=== PATIENT | female | born 1945 | race Caucasian/White ===

== ENCOUNTER → 2022-03-08 | Outpatient (CLI) | payer OTHER, MEDICAID | LOC: M RAD 07:45 | PROVIDERS: ATTEND Orthopaedic Surgery | DX: M41.85 Other forms of scoliosis, thoracolumbar region (principal); S22 Fracture of rib(s), sternum and thoracic spine; S22.079 Unspecified fracture of T9-T10 vertebra; S22.08 Fracture of T11-T12 vertebra | CPT/HCPCS: 78315; A9503 ==

== ENCOUNTER 2023-08-07 18:10 | Inpatient (IN) | payer OTHER, MEDICAID ==
[~2023-08-07] VITALS: Ht 167.6 cm; Wt 38.0 kg
[2023-08-07 18:10] VITALS: BP 147/80; TEMP 97.9; O2SAT 92
[2023-08-07 20:18] LABS: BASO # 0.1 10^3/uL (0.0-0.2); BASO % 0.8 % (0.0-1.0); EOS # 0.1 10^3/uL (0.0-0.5); EOS % 1.2 % (0.0-3.0); HEMATOCRIT 37.4 % (36.0-47.0); HEMOGLOBIN 12.9 g/dl (12.0-15.5); LYMPH # 2.4 10^3/uL (1.5-5.0); LYMPH % 20.4 % (24.0-44.0); MEAN CORPUSCULAR HEMOGLOBIN 33.7 pg (27.0-33.0); MEAN CORPUSCULAR HGB CONC 34.5 g/dl (32.0-36.5); MEAN CORPUSCULAR VOLUME 97.7 fl (80.0-96.0); MONO % 8.4 % (2.0-8.0); NEUTROPHILS # 7.9 10^3/uL (1.5-8.5); NEUTROPHILS % 68.8 % (36.0-66.0); PLATELET COUNT, AUTOMATED 212 10^3/uL (150-450); RED BLOOD COUNT 3.83 10^6/uL (4.00-5.40); WHITE BLOOD COUNT 11.5 10^3/uL (4.0-10.0)
[2023-08-07 20:35] LABS: ALBUMIN 3.9 G/DL (3.2-5.2); ALKALINE PHOSPHATASE 90 U/L (46-116); ALT/SGPT 16 U/L (7.0-40); AST/SGOT 17 U/L (<34); BILIRUBIN,TOTAL 0.3 MG/DL (0.3-1.2); BLOOD UREA NITROGEN 29 MG/DL (9-23); CALCIUM LEVEL 9.1 MG/DL (8.3-10.6); CARBON DIOXIDE LEVEL 22 MMOL/L (20-31); CHLORIDE LEVEL 106 MMOL/L (98-107); CREATININE FOR GFR 0.91 MG/DL (0.55-1.30); GLOMERULAR FILTRATION RATE > 60.0 (>39); GLUCOSE, FASTING 106 MG/DL (74-106); POTASSIUM SERUM 3.8 MMOL/L (3.5-5.1); SODIUM LEVEL 140 MMOL/L (136-145); TOTAL PROTEIN 6.7 G/DL (5.7-8.2)
[2023-08-07] MEDS ORDERED: ASPI81TA26 PO (20:58)
[2023-08-07] MEDS ORDERED: VALS1TAB67 PO (20:58)
[2023-08-07] MEDS ORDERED: AMLO1TAB24 PO (20:58)
[2023-08-07] MEDS ORDERED: ATOR1TAB19 PO (20:58)
[2023-08-07] MEDS ORDERED: HOME MED LIST COMPLETE! XX SCH (21:00)
[2023-08-07 21:05] VITALS: BP 148/80; TEMP 97.5; O2SAT 93
[2023-08-07] MEDS: ACETAMINOPHEN TAB 650MG DOSE (2X325MG) PO PRN (23:21)
[2023-08-07] MEDS: NS 1,000 ML IV SCH (23:22)
[2023-08-08 05:40] VITALS: BP 152/81; TEMP 97.7; O2SAT 90
[2023-08-08] MEDS: amLODIPine 5 MG TAB PO SCH (08:35)
[2023-08-08] MEDS: ATORVASTATIN 10 MG TAB PO SCH (08:35)
[2023-08-08] MEDS: VALSARTAN 80 MG TAB (DIOVAN) PO SCH (08:35)
[2023-08-08 15:21] VITALS: BP 104/59; TEMP 97.7; O2SAT 91
[2023-08-09] MEDS ORDERED: ceFAZolin SOD 2 GM in IV 1 EA IV SCH (01:00)
[2023-08-09 05:14] VITALS: BP 152/74; TEMP 97.5; O2SAT 95
[2023-08-09 06:22] LABS: HEMATOCRIT 35.9 % (36.0-47.0); MEAN CORPUSCULAR HGB CONC 33.4 g/dl (32.0-36.5); MEAN CORPUSCULAR VOLUME 98.6 fl (80.0-96.0); PLATELET COUNT, AUTOMATED 256 10^3/uL (150-450); RED BLOOD COUNT 3.64 10^6/uL (4.00-5.40); WHITE BLOOD COUNT 8.1 10^3/uL (4.0-10.0)
[2023-08-09 06:48] LABS: BLOOD UREA NITROGEN 21 MG/DL (9-23); CALCIUM LEVEL 8.8 MG/DL (8.3-10.6); CARBON DIOXIDE LEVEL 22 MMOL/L (20-31); CHLORIDE LEVEL 112 MMOL/L (98-107); CREATININE FOR GFR 0.93 MG/DL (0.55-1.30); GLOMERULAR FILTRATION RATE > 60.0 (>39); GLUCOSE, FASTING 92 MG/DL (74-106); POTASSIUM SERUM 4.2 MMOL/L (3.5-5.1); SODIUM LEVEL 143 MMOL/L (136-145)
[2023-08-09] MEDS ORDERED: propofoL 200 MG/20 ML VIAL As Ordered ONE (11:32)
[2023-08-09] MEDS ORDERED: SUGAMMADEX SODIUM 500 MG/5 ML VIAL (BRIDION) As Ordered ONE (11:32)
[2023-08-09] MEDS ORDERED: KETOROLAC 60MG 2ML VIAL As Ordered ONE (11:32)
[2023-08-09] MEDS ORDERED: LIDOCAINE 2% 100MG/5ML SDV (FOR ANES.) As Ordered ONE (11:32)
[2023-08-09] MEDS ORDERED: ROCURONIUM BROMIDE 50MG/5ML VIAL As Ordered ONE (11:32)
[2023-08-09] MEDS ORDERED: ONDANSETRON 4MG 2ML VIAL As Ordered ONE (11:32)
[2023-08-09] MEDS ORDERED: fentaNYL 100 MCG/2 ML INJECTION As Ordered ONE (11:33)
[2023-08-09] MEDS ORDERED: KETAMINE HCL 200MG/20ML VIAL As Ordered ONE (11:33)
[2023-08-09] MEDS ORDERED: MIDAZOLAM INJ 2MG/2ML VIAL As Ordered ONE (11:33)
[2023-08-09] MEDS ORDERED: PHENYLephrine 500MCG 5ML (100MCG/ML) SYRINGE As Ordered ONE (12:55)
[2023-08-09] MEDS ORDERED: ePHEDrine SULFATE 25 MG/5 ML(5MG/ML) SYRINGE As Ordered ONE (12:55)
[2023-08-09] MEDS ORDERED: ACETAMINOPHEN 1000MG 100ML IV BAG As Ordered ONE (12:56)
[2023-08-09] MEDS: ceFAZolin 2 GM/D5W 50 ML IV BAG As Ordered ONE (13:39)
[2023-08-09] MEDS ORDERED: GLYCOPYRROLATE INJ 0.2 MG/ML 2 ML VIAL As Ordered ONE (14:40)
[2023-08-09] MEDS: VANCOMYCIN 500MG/10ML VIAL As Ordered ONE (14:43)
[2023-08-09] MEDS ORDERED: ESMOLOL INJ 100MG/10ML VIAL As Ordered ONE (14:49)
[2023-08-09] MEDS: TRANEXAMIC ACID 100 MG/ML 10ML VIAL As Ordered ONE (15:15)
[2023-08-09] MEDS: LR 1,000 ML IV SCH (15:30)
[2023-08-09] MEDS ORDERED: HYDROMORPHONE HCL 0.5 MG/ 0.5 ML SYRINGE IV PRN (15:30)
[2023-08-09] MEDS ORDERED: oxyCODONE 5MG TAB PO PRN (15:30)
[2023-08-09] MEDS ORDERED: ONDANSETRON 4MG 2ML VIAL IV PRN (15:30)
[2023-08-09] MEDS ORDERED: fentaNYL 100 MCG/2 ML INJECTION IV PRN (15:30)
[2023-08-09 16:30] VITALS: BP 123/69; TEMP 97.2; O2SAT 96
[2023-08-09 17:07] VITALS: BP 109/62; TEMP 97.3; O2SAT 97
[2023-08-09 17:48] VITALS: BP 110/59; TEMP 97.3; O2SAT 98
[2023-08-09 18:36] VITALS: BP 110/59; TEMP 97.5; O2SAT 96
[2023-08-09 19:50] VITALS: BP 110/60; TEMP 97.5; O2SAT 96
[2023-08-09] MEDS: ceFAZolin SOD 2 GM in IV 1 EA IV SCH (20:21)
[2023-08-10 01:27] VITALS: BP 108/60; TEMP 97.4; TEMP 97.7; O2SAT 97
[2023-08-10 06:13] VITALS: BP 111/60; TEMP 97.5; O2SAT 97
[2023-08-10 08:38] LABS: BASO % 0.1 % (0.0-1.0); HEMATOCRIT 29.5 % (36.0-47.0); HEMOGLOBIN 10.1 g/dl (12.0-15.5); LYMPH # 0.7 10^3/uL (1.5-5.0); LYMPH % 4.1 % (24.0-44.0); MEAN CORPUSCULAR HEMOGLOBIN 33.9 pg (27.0-33.0); MEAN CORPUSCULAR HGB CONC 34.2 g/dl (32.0-36.5); MONO # 0.8 10^3/uL (0.0-0.8); MONO % 4.1 % (2.0-8.0); NEUTROPHILS # 16.5 10^3/uL (1.5-8.5); NEUTROPHILS % 91.1 % (36.0-66.0); PLATELET COUNT, AUTOMATED 219 10^3/uL (150-450); RED BLOOD COUNT 2.98 10^6/uL (4.00-5.40); WHITE BLOOD COUNT 18.2 10^3/uL (4.0-10.0)
[2023-08-10 08:40] VITALS: BP 115/60
[2023-08-10] MEDS: HEPARIN SOD (PORCINE) 5000UNITS/ML 1ML VIAL/SYRINGE SQ SCH (08:46)
[2023-08-10 08:58] LABS: CALCIUM LEVEL 8.4 MG/DL (8.3-10.6); CREATININE FOR GFR 1.01 MG/DL (0.55-1.30); GLOMERULAR FILTRATION RATE 56.3 (>39); POTASSIUM SERUM 4.3 MMOL/L (3.5-5.1)
[2023-08-10] MEDS ORDERED: ENOXAPARIN 40MG/0.4ML SYRINGE (J1650 PER 10MG) SC SCH (09:00)
[2023-08-10 10:29] VITALS: BP 121/60; TEMP 97.7; O2SAT 93
[2023-08-10 15:08] VITALS: BP 119/61; TEMP 98.4; O2SAT 91
[2023-08-10] MEDS: ASPIRIN 81MG ENTERIC TABLET PO SCH (16:49)
[2023-08-10 20:23] VITALS: BP 117/60; TEMP 97.3; O2SAT 92
[2023-08-11 04:52] VITALS: BP 146/76; TEMP 97.7; O2SAT 90
[2023-08-11 07:23] LABS: HEMATOCRIT 29.1 % (36.0-47.0); MEAN CORPUSCULAR HEMOGLOBIN 34.1 pg (27.0-33.0); MEAN CORPUSCULAR HGB CONC 34.4 g/dl (32.0-36.5); MEAN CORPUSCULAR VOLUME 99.3 fl (80.0-96.0); PLATELET COUNT, AUTOMATED 200 10^3/uL (150-450); RED BLOOD COUNT 2.93 10^6/uL (4.00-5.40); WHITE BLOOD COUNT 12.6 10^3/uL (4.0-10.0)
[2023-08-11 07:51] LABS: CALCIUM LEVEL 8.2 MG/DL (8.3-10.6); CREATININE FOR GFR 0.98 MG/DL (0.55-1.30); GLOMERULAR FILTRATION RATE 58.3 (>39)
[2023-08-11 08:46] VITALS: BP 116/63
[2023-08-11 15:37] VITALS: BP 109/56; TEMP 97.9; O2SAT 92
[2023-08-11 20:09] VITALS: BP 127/63; TEMP 97.9; O2SAT 92
[2023-08-11] MEDS: HYDROMORPHONE HCL 0.5 MG/ 0.5 ML SYRINGE IV PRN (21:05)
[2023-08-12 05:15] VITALS: BP 127/64; TEMP 97.5; O2SAT 92
[2023-08-12] MEDS ORDERED: HYDROMORPHONE HCL 0.5 MG/ 0.5 ML SYRINGE IV PRN (12:00)
[2023-08-12] MEDS: oxyCODONE 5MG TAB PO PRN (12:24)
[2023-08-12 14:00] VITALS: BP 125/63; TEMP 97.7; O2SAT 95
[2023-08-12 21:33] VITALS: BP 137/70; TEMP 97.5; O2SAT 94
[2023-08-13] MEDS: oxyCODONE 5MG TAB PO PRN (03:12)
[2023-08-13 05:50] VITALS: BP 109/56; TEMP 97.5; O2SAT 92
[2023-08-13 07:12] LABS: HEMATOCRIT 30.4 % (36.0-47.0); HEMOGLOBIN 10.2 g/dl (12.0-15.5); MEAN CORPUSCULAR HEMOGLOBIN 33.2 pg (27.0-33.0); MEAN CORPUSCULAR HGB CONC 33.6 g/dl (32.0-36.5); PLATELET COUNT, AUTOMATED 189 10^3/uL (150-450); RED BLOOD COUNT 3.07 10^6/uL (4.00-5.40); WHITE BLOOD COUNT 7.4 10^3/uL (4.0-10.0)
[2023-08-13 14:00] VITALS: BP 107/73; TEMP 97.7; O2SAT 93
[2023-08-13] MEDS: OMEPRAZOLE 20MG CAP PO SCH (17:41)
[2023-08-13 21:03] VITALS: BP 111/71; TEMP 97.5; O2SAT 91
[2023-08-14 06:00] VITALS: BP 105/57; TEMP 97.5; O2SAT 92
[2023-08-14 06:03] LABS: BASO # 0.1 10^3/uL (0.0-0.2); BASO % 0.7 % (0.0-1.0); EOS # 0.3 10^3/uL (0.0-0.5); EOS % 4.9 % (0.0-3.0); HEMOGLOBIN 9.7 g/dl (12.0-15.5); LYMPH # 1.2 10^3/uL (1.5-5.0); LYMPH % 17.4 % (24.0-44.0); MEAN CORPUSCULAR HEMOGLOBIN 33.2 pg (27.0-33.0); MEAN CORPUSCULAR HGB CONC 33.4 g/dl (32.0-36.5); MEAN CORPUSCULAR VOLUME 99.3 fl (80.0-96.0); MONO # 0.5 10^3/uL (0.0-0.8); MONO % 7.6 % (2.0-8.0); NEUTROPHILS # 4.7 10^3/uL (1.5-8.5); PLATELET COUNT, AUTOMATED 190 10^3/uL (150-450); RED BLOOD COUNT 2.92 10^6/uL (4.00-5.40); WHITE BLOOD COUNT 6.8 10^3/uL (4.0-10.0)
[2023-08-14 06:24] LABS: CALCIUM LEVEL 8.6 MG/DL (8.3-10.6); CREATININE FOR GFR 1.07 MG/DL (0.55-1.30); GLOMERULAR FILTRATION RATE 52.7 (>39); MAGNESIUM LEVEL 1.6 MG/DL (1.8-2.4); POTASSIUM SERUM 4.3 MMOL/L (3.5-5.1)
[2023-08-14] MEDS: MAG SULF 1GM/100ML (MAG RUN) 1 GM in IV 1 EA IV SCH (08:24)
[2023-08-14 08:26] VITALS: BP 105/57
[2023-08-14] MEDS: MOM 30ML SUSPENSION UDC PO PRN (09:28)
[2023-08-14] MEDS ORDERED: OXYC-517 PO (11:03)
[2023-08-14] MEDS ORDERED: ASPI81TAEC PO (11:03)
[2023-08-14] MEDS ORDERED: OMEP-173 PO (11:03)
== END 2023-08-14 14:15 | disposition critical access hospital (66) | DRG 522 ==
LOC: M MS5PR 18:10
PROVIDERS: ADMIT Preventive Medicine Undersea and Hyperbaric Medicine; ATTEND Hospitalist
PROC: 0SRR0JZ Replacement of Right Hip Joint, Femoral Surface with Synthetic Substitute, Open Approach (ICD-10-PCS; principal; 2023-08-09 10:45)
DX: S72.001A Fracture of unspecified part of neck of right femur, initial encounter for closed fracture (principal); W01.0XXA Fall on same level from slipping, tripping and stumbling without subsequent striking against object, initial encounter; Y92.009 Unspecified place in unspecified non-institutional (private) residence as the place of occurrence of the external cause; Y93.9 Activity, unspecified; I10 Essential (primary) hypertension; E78.00 Pure hypercholesterolemia, unspecified; K44.9 Diaphragmatic hernia without obstruction or gangrene; Z90.79 Acquired absence of other genital organ(s); Z86.73 Personal history of transient ischemic attack (TIA), and cerebral infarction without residual deficits; Z79.82 Long term (current) use of aspirin; Z79.899 Other long term (current) drug therapy

== ENCOUNTER → 2023-08-23 | Outpatient (CLI) | payer OTHER, MEDICAID ==
[~2023-08-23] MED LIST: AMLO1TAB24 PO; ASPI81TA26 PO; ASPI81TAEC PO; ATOR1TAB19 PO; OMEP-173 PO; OXYC-517 PO; VALS1TAB67 PO
== END ==
LOC: M SOG 07:59
PROVIDERS: ATTEND Physician Assistant
DX: S72.001D Fracture of unspecified part of neck of right femur, subsequent encounter for closed fracture with routine healing (principal); Z96.641 Presence of right artificial hip joint

== ENCOUNTER → 2023-10-01 | Outpatient (CLI) | payer OTHER, MEDICAID | LOC: M SOG 07:58 | PROVIDERS: ATTEND Physician Assistant | DX: Z96.641 Presence of right artificial hip joint (principal) ==

== ENCOUNTER → 2023-11-12 | Outpatient (CLI) | payer OTHER, MEDICAID | LOC: M SOG 07:55 | PROVIDERS: ATTEND Physician Assistant | DX: S72.001D Fracture of unspecified part of neck of right femur, subsequent encounter for closed fracture with routine healing (principal); Z96.641 Presence of right artificial hip joint ==

== ENCOUNTER → 2024-02-12 | Outpatient (CLI) | payer OTHER, MEDICAID | LOC: M SOG 07:51 | PROVIDERS: ATTEND Physician Assistant | DX: S72.001D Fracture of unspecified part of neck of right femur, subsequent encounter for closed fracture with routine healing (principal); Z96.641 Presence of right artificial hip joint ==